=== PATIENT | female | born 1975 | race African-American/Black ===

== ENCOUNTER 2025-06-17 21:39 | Emergency (ER) | payer MEDICARE, MEDICAID ==
[~2025-06-17] VITALS: Ht 121.9 cm; Wt 105.0 kg
--- NOTE | 2025-06-17 22:10 | ED.PDOC ---
Back pain HPI HPI Comments 50-year-old female with a past medical history presents to the ER with a chief complaint of tender swelling over the Achilles tendon for the past 2 months, patient works at a [employer], and has prolonged standing hours, she felt pain and swelling over the posterior aspect of the heel 2 months back which has been worsening and affecting her daily life, patient has been limping, she says that the swelling has increased, and is painful to touch but denies any associated erythema/purulent drainage, denies any fever or chills. Denies any history of trauma or motor vehicle collision. Patient seen and examined ER lobby. Intact range of motion, no neurological deficits, no pain while dorsiflexion or plantar flexion. Chief Complaint: Lower Extremity Time Seen by MD: 21:45 Primary Care Provider: FRANK Allergies: Coded Allergies: NO KNOWN ALLERGIES (Unverified , 12/28/13) Home Meds Active Scripts Diclofenac Sodium (Topical) (Voltaren Arthritis Pain) 1 % Gel, 1 % EX BIDP PRN for 30 Days, #5 GEL 0 Refills Prov:PETTY RANKIN RESIDENT 06/17/25 Mode of Arrival: Ambulatory Past Medical History PAST MEDICAL HISTORY: Denies Surgical History: Denies all surgeries SALES HOST History: No Pertinent SALES HOST History Family History Family History: Unknown Social History Smoker: Non-Smoker Alcohol: Denies ETOH Use Drugs: Denies Drug Use Constitutional: denies: chills, diaphoresis, fatigue, fever, malaise, sweats, weakness, others EENTM: denies: blurred vision, double vision, ear bleeding, ear discharge, ear drainage, ear pain, ear ringing, eye pain, eye redness, hearing loss, mouth pain, mouth swelling, nasal discharge, nose bleeding, nose congestion, nose pain, photophobia, tearing, throat pain, throat swelling, voice changes, others Respiratory: denies: cough, hemoptysis, orthopnea, SOB at rest, shortness of breath, SOB with excertion, stridor, wheezing, others Cardiovascular: denies: chest pain, dizzy spells, diaphoresis, Dyspnea on exertion, edema, irregular heart beat, left arm pain, lightheadedness, palpitations, PND, syncope, others Gastrointestinal: denies: abdomen distended, abdominal pain, blood streaked bowels, constipated, diarrhea, dysphagia, difficulty swallowing, hematemesis, melena, nausea, poor appetite, poor fluid intake, rectal bleeding, rectal pain, vomiting, others Genitourinary: denies: abnormal vagina bleeding, burning, dyspareunia, dysuria, flank pain, frequency, hematuria, incontinence, pain, , vagina discharge, urgency, others Neurological: denies: dizziness, fainting, headache, left sided numbness, left sided weakness, numbness, paresthesia, pre-existing deficit, right sided numbness, right sided weakness, seizure, speech problems, tingling, tremors, weakness, others Musculoskeletal: reports: joint pain, joint swelling Integumetry: reports: lumps Allergic/Immunocompromised: denies: Difficulty Healing, Frequent Infections, Hives, Itching, others Hematologic/Lymphatic: denies: anemia, blood clots, easy bleeding, easy bruising, swollen glands, others Endocrine: denies: excessive hunger, excessive sweating, excessive thirst, excessive urination, flushing, intolerance to cold, intolerance to heat, unexplained weight gain, unexplained weight loss, others Psychiatric: denies: anxiety, bipolar disorder, depression, hopeless, panic disorder, schizophrenia, sleepless, suicidal, others Physical Exam General Appearance: No Apparent Distress, Normal HEENT: Normal ENT Inspection, Pharynx Normal, TMs Normal Neck: Full Range of Motion, Non-Tender, Normal, Normal Inspection Respiratory: Chest Non-Tender, Lungs Clear, No Accessory Muscle Use, No Respiratory Distress, Normal Breath Sounds Cardiovascular: No Edema, No JVD, No Murmur, No Gallop, Normal Peripheral Pulses, Regular Rate/Rhythm Breast Exam: Deferred Gastrointestinal: No Organomegaly, Non Tender, No Pulsatile Mass, Normal Bowel Sounds, Soft Genitalia: Deferred Pelvic: Deferred Rectal: Deferred Extremities: No calf tenderness, Normal capillary refill, Normal inspection, Normal range of motion, No pedal edema, Swelling (L ankle achilles tendon), Tender, Other ( Intact range of motion, no neurological deficits, no pain while dorsiflexion or plantar flexion. 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 Was a procedure done?: No Back Pain Differential Dx Differential Diagnosis: Strain Other Differential Diagnosis Achilles tendinopathy/tendon ruptures/enthesopathy/plantar fasciitis/stress fracture X-Ray, Labs, Meds, VS Vital Signs Date Time Temp Pulse Resp B/P (MAP) Pulse Ox O2 Delivery O2 Flow Rate FiO2 06/18/25 00:55 98.5 63 19 165/84 (111) 100 98.5 06/17/25 21:40 98.0 73 16 124/76 97 98.0 Current Medications Medications (Trade) Dose Ordered Sig/Kailee Route Start Time Stop Time Status Last Admin Ketorolac Tromethamine (Toradol Injection) 15 mg ONCE ONCE IM 06/17/25 22:15 06/17/25 22:16 DC 06/17/25 22:30 X-Ray, Labs, Meds, VS Comment Left ankle x-ray shows There is no evidence of acute fracture or dislocation. Plantar and retrocalcaneal enthesopathy. Soft tissues are unremarkable. Images Reviewed?: Images reviewed and evaluated by me Time of 1ST Reevaluation: 00:00 Reevaluation 1ST: Improved Patient Education/Counseling: Diagnosis, Treatment, Prognosis, Need For Follow Up Family Education/Counseling: Diagnosis, Treatment, Prognosis, Need For Follow Up SEPSIS Sepsis Screen Date sepsis recognized/suspect: Jun 17, 2025 Time Sepsis recognized/suspect: 2141 Recent Procedure: No On Antibiotic Therapy: No Respiratory Rate >20: No Heart Rate >90: No Temp<36 C (96.8 F) or >38.3 C: No SBP <90 or MAP <65 mmHG: No New Acute Mental Status Change: No Is the patient on CPAP, BIPAP,: No Physician Orders Bilateral Heel Protectors (06/17/25 22:07) Schedule For Dc Clinic F/U (06/17/25 22:44) L Ankle 2 View Xray (06/17/25 23:26) Vital Signs Date Time Temp Pulse Resp B/P (MAP) Pulse Ox O2 Delivery O2 Flow Rate FiO2 06/18/25 00:55 98.5 63 19 165/84 (111) 100 98.5 06/17/25 21:40 98.0 73 16 124/76 97 98.0 Medications Medications Dose Ordered Sig/Kailee Route Start Time Stop Time Status Last Admin Dose Admin Ketorolac Tromethamine 15 mg ONCE ONCE IM 06/17/25 22:15 06/17/25 22:16 DC 06/17/25 22:30 Departure 1 Departure Time of Disposition: 01:16 Impression: Primary Impression: Insertional tendinopathy of left Achilles tendon Additional Impression: Enthesopathy of ankle Disposition: 01 HOME / SELF CARE / HOMELESS Condition: Stable Additional Instructions: Reduced prolonged standing if possible, [id number] heel lift or cushioned insoles to reduce tension on Achilles and plantar fascia Ice packs over the inflamed area Topical diclofenac gel and [id number] ibuprofen 3 times daily as needed for the next 7-10 days Outpatient ultrasound or MRI of the swelling persists and pain worsens In the case of fever, chills, worsening pain with minimal stress, systemic symptoms, return to ER in follow up with Rheumatology e-Prescriptions Diclofenac Sodium (Topical) (Voltaren Arthritis Pain) 1 % Gel 1 % EX BIDP PRN for 30 Days, #5 GEL 0 Refills Prov: PETTY RANKIN RESIDENT 06/17/25 Discharged With: Self, Spouse Critical Care Note Critical Care Time?: No Stability Stability form required: No PETTY RANKIN RESIDENT Jun 17, 2025 22:10
[2025-06-17] MEDS: LIDOCAINE HCL 5 % TOP OINT 35 GM TOP ONE (22:29)
[2025-06-17] MEDS: KETOROLAC TROMETH 30 MG/ML 1ML VIAL IM ONE (22:30)
[2025-06-17] MEDS ORDERED: DICL1GEL59 EX (22:46)
--- NOTE | 2025-06-18 00:08 | DVH ---
CLINICAL INDICATION: bursitis vs tendinopathy TECHNIQUE: XY L ANKLE 2 VIEW XRAY Comparison: None FINDINGS/IMPRESSION: : There is no evidence of acute fracture or dislocation. Plantar and retrocalcaneal enthesopathy. Soft tissues are unremarkable.
[2025-06-18 00:55] VITALS: BP 165/84; PULSE 63; RESP 19; TEMP 98.5; O2SAT 100
== END 2025-06-18 01:43 | disposition home or self-care (01) ==
LOC: ER 21:39
DX: M77.32 Calcaneal spur, left foot (principal); M77.50 Other enthesopathy of unspecified foot and ankle; Z79.899 Other long term (current) drug therapy
CPT/HCPCS: 73600; 96372; 99283; J1885